=== PATIENT | male | born 1970 | race Caucasian/White ===

== ENCOUNTER 2021-11-17 20:09 | Emergency (ER) | payer OTHER ==
[~2021-11-17] VITALS: Ht 180.3 cm; Wt 113.4 kg
[2021-11-17] MEDS ORDERED: MORPHINE SULFATE 4 MG/ML SYR/VIAL IM ONE (22:30)
[2021-11-17] MEDS ORDERED: PERCOT PO (22:38)
[2021-11-17 23:15] VITALS: BP 152/74
== END 2021-11-17 23:19 | disposition home or self-care (01) ==
LOC: ER 20:09
DX: S42.002A Fracture of unspecified part of left clavicle, initial encounter for closed fracture (principal); V86.56XA Driver of dirt bike or motor/cross bike injured in nontraffic accident, initial encounter; Y93.89 Activity, other specified; Y99.8 Other external cause status; Y92.89 Other specified places as the place of occurrence of the external cause
CPT/HCPCS: 73030